=== PATIENT | male | born 1960 | race Caucasian/White ===

== ENCOUNTER 2018-04-04 08:13 | Outpatient (CLI) | payer OTHER ==
[~2018-04-04] VITALS: Ht 170.2 cm; Wt 97.5 kg
[~2018-04-04 08:13] MED LIST: AVALIDE 300/12.1 TAB; AVAPRO150 MG; ORPH100T PO; TORADOL60 MG IM
== END 2018-04-04 09:27 | disposition home or self-care (01) ==
LOC: OFIC 805 08:13
DX: H93.13 Tinnitus, bilateral (principal)

== ENCOUNTER 2018-05-23 10:14 | Day surgery (SDC) | payer OTHER ==
[~2018-05-23 10:14] MED LIST changes: +AVALIDE 300-121 EACH PO
== END 2018-05-23 17:30 | disposition home or self-care (01) ==
LOC: CIR.AMB 10:14
DX: N43.2 Other hydrocele (principal)